=== PATIENT | female | born 1945 | race Caucasian/White ===

== ENCOUNTER 2018-02-28 13:38 | Day surgery (SDC) | payer MEDICARE, OTHER ==
[~2018-02-28] VITALS: Ht 160 cm; Wt 82.1 kg
[2018-02-28] MEDS ORDERED: SYNTHROID25 MCG (14:04)
[2018-02-28] MEDS ORDERED: OMEPRAZOLE MAGN20 MG (14:04)
[2018-02-28] MEDS ORDERED: Triamterene W/1 EACH (14:05)
[2018-02-28] MEDS ORDERED: Carvedilol12.5 MG (14:05)
[2018-02-28] MEDS ORDERED: COQ1050 MG PO (14:06)
[2018-02-28] MEDS ORDERED: Alph-E-Mixed400 UNIT (14:06)
[2018-02-28] MEDS ORDERED: PRAVASTATIN SOD10 MG (14:06)
[2018-02-28] MEDS ORDERED: GLUCOSAMINE HC500 MG (14:07)
[2018-02-28] MEDS ORDERED: FISH OIL OMEGA1 EAC2 (14:07)
[2018-02-28] MEDS ORDERED: ASCO500 (14:07)
[2018-02-28] MEDS ORDERED: CALCIUM CITRAT1 EAC6 (14:07)
[2018-02-28] MEDS ORDERED: OPTIFLEX-C400 MG (14:07)
[2018-02-28] MEDS ORDERED: B Complex #11 EACH (14:08)
[2018-02-28] MEDS ORDERED: Chromium Pico200 MCG (14:08)
[2018-02-28] MEDS ORDERED: ALPHA LIPOIC A600 MG (14:08)
[2018-02-28] MEDS ORDERED: Hair, Skin & N1 EACH (14:09)
[2018-02-28] MEDS ORDERED: Curcumin1 GM (14:09)
== END 2018-02-28 15:27 | disposition home or self-care (01) ==
LOC: ORSCSDS 13:38
PROVIDERS: Internal Medicine Gastroenterology
PROC: 0DBK8ZX Excision of Ascending Colon, Via Natural or Artificial Opening Endoscopic, Diagnostic (ICD-10-PCS; principal; 2018-02-28 15:00)
PROC: 0DBP8ZX Excision of Rectum, Via Natural or Artificial Opening Endoscopic, Diagnostic (ICD-10-PCS; principal; 2018-02-28 15:00)
DX: Z12.11 Encounter for screening for malignant neoplasm of colon (principal); Z86.010 Personal history of colon polyps; D12.2 Benign neoplasm of ascending colon; K62.1 Rectal polyp; K57.30 Diverticulosis of large intestine without perforation or abscess without bleeding; I10 Essential (primary) hypertension; E11.9 Type 2 diabetes mellitus without complications; E03.9 Hypothyroidism, unspecified; Z79.899 Other long term (current) drug therapy
CPT/HCPCS: 82947; 88305; J2250; J7120

== ENCOUNTER 2023-06-14 07:39 | Day surgery (SDC) | payer MEDICARE, OTHER ==
[~2023-06-14] VITALS: Ht 160 cm; Wt 87.6 kg
[~2023-06-14 07:39] MED LIST: ALPHA LIPOIC A600 MG; ASCO500; Alph-E-Mixed400 UNIT; B Complex #11 EACH; CALCIUM CITRAT1 EAC6; COQ1050 MG PO; Carvedilol12.5 MG; Chromium Pico200 MCG; Curcumin1 GM; FISH OIL OMEGA1 EAC2; GLUCOSAMINE HC500 MG; Hair, Skin & N1 EACH; OMEPRAZOLE MAGN20 MG; OPTIFLEX-C400 MG; PRAVASTATIN SOD10 MG; SYNTHROID25 MCG; Triamterene W/1 EACH
[2023-06-14] MEDS ORDERED: LOSA25 (07:52)
[2023-06-14] MEDS ORDERED: TIZA4 (07:53)
[2023-06-14] MEDS ORDERED: MINO2.5 (07:56)
[2023-06-14 09:43] VITALS: BP 141/86
== END 2023-06-14 09:38 | disposition home or self-care (01) ==
LOC: ORSCSDS 07:39 → ORSCMMR 07:40 → ORSCSDS 09:00
PROVIDERS: Internal Medicine Gastroenterology
PROC: 0DJD8ZZ Inspection of Lower Intestinal Tract, Via Natural or Artificial Opening Endoscopic (ICD-10-PCS; principal; 2023-06-14 09:00)
DX: Z12.11 Encounter for screening for malignant neoplasm of colon (principal); Z86.010 Personal history of colon polyps; K57.30 Diverticulosis of large intestine without perforation or abscess without bleeding; R79.89 Other specified abnormal findings of blood chemistry; Z68.35 Body mass index [BMI] 35.0-35.9, adult; Z79.82 Long term (current) use of aspirin; Z79.899 Other long term (current) drug therapy
CPT/HCPCS: 82947; J2704; J7120

== ENCOUNTER 2025-04-05 08:25 | Day surgery (SDC) | payer MEDICARE, OTHER ==
[~2025-04-05] VITALS: Ht 160 cm; Wt 88.2 kg
[~2025-04-05 08:25] MED LIST changes: +ASCO500 PO; +ASPI325 PO; +B-COMPLEX WITH1 EAC2 PO; +Balanced Salt Epinephrine Irrigation Solution 500 mL IR SCH; +CALCIUM CIT 311 EAC7 PO; +CIDAFLEX TABLE1 EACH PO; +COENZYME Q-1030 MG PO; +Carvedilol12.5 MG PO; +Chromium Pico400 MCG; +FISH OIL 1,0001 EA10 PO; +LEVOTHYROXINE50 MC9 PO; +LOSA25; +LOSARTAN-HCTZ1 EAC5 PO; +MERIBIN5 MG PO; +MINO2.5; +MINO2.5 PO; +Moxifloxacin HCL 0.5 MG/0.1 ML 0.4MLSYR LEFTEYE SCH; +NAPR220 PO; +Natrol Alpha 3300 MG; +OMEP20ER PO; +Ondansetron 4 MG SoluTab MM PRN; +PHENYLEPHRINE\\TROPICAMIDE\\TETRACAINE OPHTHALMIC DILATING SOLN LEFTEYE PRN; +PRAV20 PO; +Povidone-Iodine 450 DROP/30 ML Solution LEFTEYE SCH; +Povidone-Iodine 450 DROP/30 ML Solution ONE; +TIZA4; +Tetracaine HCl/Pf 0.5% Opth Soln 4 ml ONE; +Triamcinolone Inj Susp 40 MG / ML 1ML Vial INJ SCH; +Triamcinolone Inj Susp 40 MG / ML 1ML Vial ONE
--- NOTE | 2025-04-05 09:09 | NUR ---
04/05/25 0909 Loretta Marshall 0908: 10 MG PO VALIUM PER ORDERS. INITIAL ANXIETY 0/10 PER PATIENT. PULSE OX ON FINGER, CALL LIGHT IN HAND.
[2025-04-05] MEDS ORDERED: CRANBERRY215 MG (09:12)
[2025-04-05] MEDS ORDERED: AREDS (09:13)
[2025-04-05] MEDS ORDERED: CENTRUM SILVER1 EAC2 (09:13)
[2025-04-05] MEDS ORDERED: NAPR220 (09:14)
[2025-04-05] MEDS ORDERED: CORICIDIN HBP (09:15)
--- NOTE | 2025-04-05 09:50 | NUR ---
04/05/25 0950 Valeria Kelsey HR:78 BP:137/86 SPO2: 96% ON 10L BLOW BY O2
[2025-04-05 10:16] VITALS: BP 141/79
== END 2025-04-05 10:35 | disposition home or self-care (01) ==
LOC: ORSCSDS 08:25
PROVIDERS: Ophthalmology
PROC: 08RK3JZ Replacement of Left Lens with Synthetic Substitute, Percutaneous Approach (ICD-10-PCS; principal; 2025-04-05 10:00)
DX: H25.812 Combined forms of age-related cataract, left eye (principal); Z96.1 Presence of intraocular lens; I10 Essential (primary) hypertension; K21.9 Gastro-esophageal reflux disease without esophagitis; Z79.899 Other long term (current) drug therapy
CPT/HCPCS: A9270; J3301; V2632